=== PATIENT | female | born 1985 | race Caucasian/White ===

== ENCOUNTER 2018-04-10 10:15 | Inpatient (IN) ==
--- NOTE | 2018-04-10 10:32 | ED ---
HPI - - General Source: patient - General Chief complaint: Medical Clearance Stated complaint: well being - History of Present Illness HPI narrative: Sent from [facility] for ob evaluation for admission. ( Batool Maher) - Related Data Home Medications Medication Instructions Recorded Confirmed prenat.vits,teresa,[id number] 1 tab PO DAILY 04/10/18 04/10/18 [ Vitamin] Allergies Allergy/AdvReac Type Severity Reaction Status Date / Time No Known Allergies Allergy Verified 04/10/18 13:48 Review of Systems All other systems reviewed negative except as stated in HPI PMFSH - - Past Medical History Medical history: Reports: diabetes Questionable history of hep C, never began metformin for gest diabetes DESIGNER ARCHITECT history: Reports: No DESIGNER ARCHITECT History Expected Date of Delivery: 05/02/18 - Social History Smoking Status: Current every day smoker Physical Exam - General Limitations: no limitations - Respiratory Respiratory exam: Present: normal lung sounds bilaterally - Cardiovascular Cardiovascular exam: Present: regular rate, normal rhythm - Abdominal Exam Abdominal exam: Present: soft. Absent: tenderness - Extremities Exam Extremities exam: Present: normal inspection - Neurological Exam Neurological exam: Present: alert, oriented X3 - Psychiatric Psychiatric exam: Present: normal affect, normal mood - Skin Skin exam: Present: warm, dry, intact - Other Other exam information: FHTs reactive, cat 1, no contractions (Batool Maher) Initial Documented Vital Signs Temperature 98.0 F 04/10/18 10:32 Respiratory Rate 18 04/10/18 10:32 Last Documented Vital Signs Temperature 97.9 F 04/10/18 13:41 Pulse Rate 54 L 04/10/18 13:41 Respiratory Rate 18 04/10/18 13:41 Blood Pressure 132/73 04/10/18 13:41 MDM - OB/Uterine Contractions - Lab Data Result diagrams: 04/10/18 14:25 - MDM Narrative Medical decision making narrative: Patient with oligohydramnios. Explained need for admission and delivery at term for the safety of her . (Batool Maher)
[2018-04-10] MEDS ORDERED: Oxytocin 30 Units/500ml Premix 30 UNITS/500 ML BAG IV.SIG ONE (13:16)
[2018-04-10] MEDS ORDERED: fentaNYL Citrate Inj 100 MCG/2 ML Ampul IV.PUSH PRN (13:16)
[2018-04-10] MEDS ORDERED: Sodium Chlor 0.9% Inj 500 ML IV.SIG PRN (13:16)
[2018-04-10] MEDS ORDERED: Naloxone Inj 0.4 MG/ML Vial IV.PUSH PRN (13:16)
[2018-04-10] MEDS ORDERED: Sod Chloride 0.9% Inj 1,000 ML IV.CONT PRN (13:16)
[2018-04-10] MEDS ORDERED: Citric Acid/Sodium Citrate Liq 30 ML UDC PO SCH (13:30)
[2018-04-10 15:16] LABS: Baso # (Auto) 0.1 th/mm3 (0.0-0.2); Baso % (Auto) 0.7 % (0.0-2.0); Eos # (Auto) 0.1 th/mm3 (0.0-0.4); Eos % (Auto) 0.7 % (0.0-4.0); Hematocrit 31.8 % (35.0-46.0); Hemoglobin 10.4 gm/dL (11.6-15.3); Lymph # (Auto) 2.2 th/mm3 (1.0-4.8); Lymph % (Auto) 24.4 % (9.0-44.0); Mean Corpuscular HGB Conc 32.6 % (32.0-36.0); Mean Corpuscular Hemoglobin 25.1 pg (27.0-34.0); Mean Corpuscular Volume 76.9 fL (80.0-100.0); Mono # (Auto) 0.9 th/mm3 (0.0-0.9); Mono % (Auto) 9.8 % (0.0-8.0); Neut # (Auto) 5.7 th/mm3 (1.8-7.7); Neut % (Auto) 64.4 % (16.0-70.0); Platelet Count 305 th/mm3 (150-450); Red Blood Count 4.13 mil/mm3 (4.00-5.30); Red Cell Distribution Width 16.4 % (11.6-17.2); White Blood Count 8.9 th/mm3 (4.0-11.0)
--- NOTE | 2018-04-10 16:32 | P.HPOB ---
History of Present Illness Primary Care Physician: No Primary Care Physician Chief Complaint: oligohydramnios History of Present Illness: Pt came in last night for verification to be admitted to [facility]. NST reactive and was sent home. Pt returns today for further evaluation. Program contacted and was told she needed an ultrasound. On ultrasound her IBIS was found to be 4.2, no 2cm pockets. Weeks Gestation:: 36 (+6d) Para: 0 : 1 Last menstrual period: 07/26/2017 - Inpatient Certification I certify that the inpatient services were ordered in accordance with Medicare regulations governing the order. This includes certification that hospital inpatient services are reasonable and necessary and in the case of services not specified as inpatient-only under 42 CFR 419.22(n), that they are appropriately provided as inpatient services in accordance to with the 2-midnight benchmark under 43 CFR 412.3(e) Estimated Total Length of Stay (Days): 3 Plans for Post Hospital Care: Home Review of Systems All other systems reviewed negative except as stated in HPI [facility] - History History Provided By: Patient - Medical History Medical History: Medical History (Last Updated 04/10/18 @ 00:25 by Marshall Davalos MD) Gestational diabetes mellitus (GDM) affecting first Hepatitis C Hepatitis C antibody test positive - Tobacco History Smoking Status: Current every day smoker Tobacco Type: Cigarettes Packs Per Day: 0.5 - Substance Use History Substance History: No History of Abuse - Travel History History of Recent Travel: No Recent Travel in the [place] Within the Last 8 Weeks: No Recent Travel Out of the Country Within the Last 8 Weeks: No Medications and Allergies Active Medications: Active Medications Betamethasone Acet/Betameth SodPhos (Celestone Soluspan Inj) 12 mg IM ONCE ONE Stop: 04/10/18 16:06 Citric Acid/Sodium Citrate (Sodium Citrate/Citric Acid Liq) 30 ml PO BLOCK CUTTER HEIDI Stop: 04/14/18 13:29 Fentanyl Citrate (Fentanyl Inj) 100 mcg IV.PUSH Q1H PRN PRN Reason: PAIN SCALE 6 TO 10 Fentanyl Citrate (Fentanyl Inj) 50 mcg IV.PUSH Q1H PRN PRN Reason: Pain Scale 3 - 5 Lactated Ringer's (Lr 1000 Ml Inj) 1,000 mls @ 125 mls/hr IV.CONT .Q8H [facility] Last Admin: 04/10/18 14:24 Dose: 125 mls/hr Lactated Ringer's (Lr 1000 Ml Inj) 1,000 mls @ 3,000 mls/hr IV.SIG UNSCH PRN PRN Reason: compromise or epidural Sodium Chloride (Ns Inj) 1,000 mls @ 100 mls/hr IV.CONT .Q10H PRN PRN Reason: SEE LABEL COMMENTS Sodium Chloride (Ns Inj) 500 mls @ 1,000 mls/hr IV.SIG UNSCH PRN PRN Reason: SEE LABEL COMMENTS Lidocaine HCl (Xylocaine 1% Inj) 0.1 ml I-DERMAL PRN PRN PRN Reason: For IV start Stop: 04/13/18 13:15 Lidocaine HCl (Xylocaine 1% Inj) 10 ml INFILTRATN PRN PRN PRN Reason: For episiotomy repair Stop: 04/12/18 13:15 Mineral Oil (Muri-Lube Oil) 10 ml TOPICAL PRN PRN PRN Reason: PRN perineal massage Naloxone HCl (Narcan Inj) 0.1 mg IV.PUSH Q2M PRN PRN Reason: for opiate reversal Nicotine (Habitrol 7 Mg Patch.24 Hr) 1 patch T-DERMAL DAILY HEIDI Stop: 04/12/18 09:01 Patch Removal (Remove Old Patch) 1 each T-DERMAL DAILY HEIDI Allergies Allergy/AdvReac Type Severity Reaction Status Date / Time No Known Allergies Allergy Verified 04/10/18 13:48 Home Medications Medication Instructions Recorded Confirmed Type prenat.vits,teresa,rap-bcnx-ukuam 1 tab PO DAILY 04/10/18 04/10/18 History [ Vitamin] Exam Vital signs: Vital Signs 04/10/18 10:32 04/10/18 10:33 04/10/18 13:41 Temperature 98.0 F 97.9 F Pulse Rate 55 L 54 L Respiratory Rate 18 18 Blood Pressure 119/55 L 132/73 Intake & Output 04/09/18 04/10/18 04/10/18 18:59 06:59 18:59 Weight 78.471 kg - Constitutional no acute distress, average body habitus - Routine HEENT Exam Head: Present: normocephalic, atraumatic - Routine Respiratory Exam Absent: wheezes - Routine Cardiovascular Exam Present: RRR, S1, S2. Absent: murmur - Routine Abdominal Exam Present: soft. Absent: tenderness - Routine Extremities Exam Absent: cyanosis, clubbing, edema - Routine Skin Exam Present: intact, dry - Routine Neurological Exam Present: alert, oriented X3 Results - Labs CBC & Chem 7: 04/10/18 14:25 Labs: Laboratory Results - last 24 hr 04/10/18 04/10/18 14:25 14:25 WBC 8.9 RBC 4.13 Hgb 10.4 L Hct 31.8 L MCV 76.9 L MCH 25.1 L MCHC 32.6 RDW 16.4 Plt Count 305 MPV 10.0 Neut % (Auto) 64.4 Lymph % (Auto) 24.4 [place] % (Auto) 9.8 H Eos % (Auto) 0.7 Baso % (Auto) 0.7 Neut # (Auto) 5.7 Lymph # (Auto) 2.2 [place] # (Auto) 0.9 Eos # (Auto) 0.1 Baso # (Auto) 0.1 WBC Differential . Differential Comment Auto diff final Blood Type A Positive Blood Type Recheck Required Caprini VTE Risk Assessment Caprini VTE Risk Assessment: No/Low Risk (score <= 1) Caprini Risk Assessment Model: Point Value = 1 Point Value = 2 Point Value = 3 Point Value = 5 Age 41-60 Minor surgery BMI > 25 kg/m2 Swollen legs Varicose veins or History of unexplained or recurrent spontaneous Oral contraceptives or hormone replacement Sepsis (< 1 month) Serious lung disease, including pneumonia (< 1 month) Abnormal pulmonary function Acute myocardial infarction Congestive heart failure (< 1 month) History of inflammatory bowel disease Medical patient at bed rest Age 61-74 Arthroscopic surgery Major open surgery (> 45 min) Laparoscopic surgery (> 45 min) Malignancy Confined to bed (> 72 hours) Immobilizing plaster cast Central venous access Age >= 75 History of VTE Family history of VTE Factor V Leiden Prothrombin [id number] Lupus anticoagulant Anticardiolipin antibodies Elevated serum homocysteine Heparin-induced thrombocytopenia Other congenital or acquired thrombophilia Stroke (< 1 month) Elective arthroplasty Hip, pelvis, or leg fracture Acute spinal cord injury (< 1 month) Prophylaxis Regimen: Total Risk Factor Score Risk Level Prophylaxis Regimen 0-1 Low Early ambulation 2 Moderate Order ONE of the following: *Sequential Compression Device (SCD) *Heparin 5000 units SQ BID 3-4 Higher Order ONE of the following medications: *Heparin 5000 units SQ TID *Enoxaparin/Lovenox 40 mg SQ daily (WT < 150 kg, CrCl > 30 mL/min) *Enoxaparin/Lovenox 30 mg SQ daily (WT < 150 kg, CrCl > 10-29 mL/min) *Enoxaparin/Lovenox 30 mg SQ BID (WT < 150 kg, CrCl > 30 mL/min) AND/OR *Sequential Compression Device (SCD) 5 or more Highest Order ONE of the following medications: *Heparin 5000 units SQ TID (Preferred with Epidurals) *Enoxaparin/Lovenox 40 mg SQ daily (WT < 150 kg, CrCl > 30 mL/min) *Enoxaparin/Lovenox 30 mg SQ daily (WT < 150 kg, CrCl > 10-29 mL/min) *Enoxaparin/Lovenox 30 mg SQ BID (WT < 150 kg, CrCl > 30 mL/min) AND *Sequential Compression Device (SCD) Assessment and Plan - Diagnosis (1) Intravenous drug use during in third trimester Code(s): O99.323 - Drug use complicating , third trimester; F19.90 - Other psychoactive substance use, unspecified, uncomplicated Status: Acute (2) Oligohydramnios without rupture of membranes in third trimester Code(s): O41.03X0 - Oligohydramnios, third trimester, not applicable or unspecified Status: Acute - Plan 33 yo sent in from [facility] for ob clearance prior to acceptance in the program. Ultrasound revealed oligohydramnios and patient was admitted for delivery. care with Dr Dell Glaser, [facility] planned for delivery. complicated by gestational diabetes, anemia, hepatitis C and heroin use. No evidence of labor. Will use cervidil for cervical ripening, followed by pitocin. Will moniter glucose and will obtain case management consult. (2) Oligohydramnios without rupture of membranes in third trimester Qualifiers: Fetus number: single or unspecified fetus Qualified Code(s): O41.03X0 - Oligohydramnios, third trimester, not applicable or unspecified
[2018-04-10] MEDS ORDERED: Betamethasone Sod Phos/Acetate Inj 30 MG/5 ML Vial IM ONE (17:00)
[2018-04-10 17:51] LABS: Bacteria,Urine Rare /hpf; Bilirubin,Urine Negative (Negative); Clarity,Urine Hazy (Clear); Color,Urine Yellow (Yellw/Straw); Glucose,Urine (UA) 50 mg/dL (Negative); Leukocyte Esterase,Urine Large (Negative); Mucus,Urine Few /lpf (Occasional); Nitrite,Urine Negative (Negative); Specific Gravity,Urine 1.014 (1.002-1.035); Squamous Epithelial Cell,Urine 4 /hpf (0-5)
[2018-04-10 17:57] LABS: Amphetamine Urine With Conf Neg (Neg); Benzodiazepine Urine With Conf Neg (Neg)
[2018-04-10 19:06] LABS: Hepatitis A IgM Antibody Nonreactive (Nonreactive); Hepatitits B Surface Antigen Nonreactive (Nonreactive)
[2018-04-10] MEDS: fentaNYL Citrate Inj 100 MCG/2 ML Ampul IV.PUSH PRN (22:48)
[2018-04-11] MEDS: fentaNYL Citrate Inj 100 MCG/2 ML Ampul IV.PUSH PRN (01:25)
--- NOTE | 2018-04-11 02:45 | P.OBANTE ---
Subjective Antepartum ROS: Reports: Contractions Objective Vital Signs and I&O: Vital Signs 04/10/18 10:32 04/10/18 10:33 04/10/18 13:41 Temperature 98.0 F 97.9 F Pulse Rate 55 L 54 L Respiratory Rate 18 18 Blood Pressure 119/55 L 132/73 04/10/18 17:53 04/10/18 19:32 04/10/18 19:45 Temperature 98.0 F Pulse Rate 52 L 65 Respiratory Rate 1 L Blood Pressure 139/81 138/61 04/10/18 22:45 04/10/18 23:17 04/10/18 23:30 Temperature 98.0 F Pulse Rate 60 54 L Respiratory Rate 20 18 Blood Pressure 156/78 H 115/50 L 04/11/18 01:15 Temperature Pulse Rate 47 L Respiratory Rate 20 Blood Pressure 144/76 H Intake & Output 04/10/18 04/10/18 04/11/18 06:59 18:59 06:59 Intake Total 1000 / 1000 Balance 1000 / 1000 Weight 78.471 kg Intake: IV 1000 / 1000 LR 1000 mL Inj 1,000 ML @ 125 1000 / 1000 mls/hr IV.CONT .Q8H [facility] Rx#: [id number] Lab and Micro Results: Laboratory Results - last 24 hr 04/10/18 04/10/18 04/10/18 13:50 13:50 14:25 WBC 8.9 RBC 4.13 Hgb 10.4 L Hct 31.8 L MCV 76.9 L MCH 25.1 L MCHC 32.6 RDW 16.4 Plt Count 305 MPV 10.0 Neut % (Auto) 64.4 Lymph % (Auto) 24.4 [place] % (Auto) 9.8 H Eos % (Auto) 0.7 Baso % (Auto) 0.7 Neut # (Auto) 5.7 Lymph # (Auto) 2.2 [place] # (Auto) 0.9 Eos # (Auto) 0.1 Baso # (Auto) 0.1 WBC Differential . Differential Comment Auto diff final POC Glucose Urine Color Yellow Urine Clarity Hazy H Urine pH 7.0 Ur Specific [place] 1.014 Urine Protein Negative Urine Glucose (UA) 50 Urine Ketones Negative Urine Occult Blood Negative Urine Nitrate Negative Urine Bilirubin Negative Urine Urobilinogen 2.0 H Ur Leukocyte Esterase Large H Urine RBC 1 Urine WBC 4 Ur Squamous Epith Cells 4 Urine Bacteria Rare H Urine Mucus Few H Micro UA Comment Culture not ind Urine Culture Comments Culture not ind Urine Opiates Screen Neg Ur Barbiturates Screen Neg Ur Amphetamine Screen Neg U Benzodiazepines Scrn Neg Urine Cocaine Screen Neg U Cannabinoids Screen Neg Hepatitis A IgM Ab Hep Bs Antigen Hep B Core IgM Ab Hep C IgG Ab Group B Strep (PCR) Blood Type Blood Type Recheck 04/10/18 04/10/18 04/10/18 14:25 14:25 17:21 WBC RBC Hgb Hct MCV MCH MCHC RDW Plt Count MPV Neut % (Auto) Lymph % (Auto) [place] % (Auto) Eos % (Auto) Baso % (Auto) Neut # (Auto) Lymph # (Auto) [place] # (Auto) Eos # (Auto) Baso # (Auto) WBC Differential Differential Comment POC Glucose 72 Urine Color Urine Clarity Urine pH Ur Specific [place] Urine Protein Urine Glucose (UA) Urine Ketones Urine Occult Blood Urine Nitrate Urine Bilirubin Urine Urobilinogen Ur Leukocyte Esterase Urine RBC Urine WBC Ur Squamous Epith Cells Urine Bacteria Urine Mucus Micro UA Comment Urine Culture Comments Urine Opiates Screen Ur Barbiturates Screen Ur Amphetamine Screen U Benzodiazepines Scrn Urine Cocaine Screen U Cannabinoids Screen Hepatitis A IgM Ab Nonreactive Hep Bs Antigen Nonreactive Hep B Core IgM Ab Nonreactive Hep C IgG Ab Reactive H Group B Strep (PCR) Blood Type A Positive Blood Type Recheck Required 04/10/18 04/10/18 21:10 22:58 WBC RBC Hgb Hct MCV MCH MCHC RDW Plt Count MPV Neut % (Auto) Lymph % (Auto) [place] % (Auto) Eos % (Auto) Baso % (Auto) Neut # (Auto) Lymph # (Auto) [place] # (Auto) Eos # (Auto) Baso # (Auto) WBC Differential Differential Comment POC Glucose 151 H Urine Color Urine Clarity Urine pH Ur Specific [place] Urine Protein Urine Glucose (UA) Urine Ketones Urine Occult Blood Urine Nitrate Urine Bilirubin Urine Urobilinogen Ur Leukocyte Esterase Urine RBC Urine WBC Ur Squamous Epith Cells Urine Bacteria Urine Mucus Micro UA Comment Urine Culture Comments Urine Opiates Screen Ur Barbiturates Screen Ur Amphetamine Screen U Benzodiazepines Scrn Urine Cocaine Screen U Cannabinoids Screen Hepatitis A IgM Ab Hep Bs Antigen Hep B Core IgM Ab Hep C IgG Ab Group B Strep (PCR) Positive Blood Type Blood Type Recheck Physical Exam: GENERAL: Well-nourished, well-developed patient. ABDOMEN/GI: Abdomen soft, non-tender. GENITOURINARY: External Genitalia: Cervix: posterior Dilatation: 3-4 Effacement: 80 Station: 0 Presentation: ceph Membranes: I Uterine Contractions: q 3, strong FHT's: Category: 1 Baseline: 130 Reactive: + Variability: mod Decels: none EXTREMITIES: No cyanosis or edema, non-tender, without signs of DVT. Assessment and Plan - Diagnosis (1) Intravenous drug use during in third trimester Code(s): O99.323 - Drug use complicating , third trimester; F19.90 - Other psychoactive substance use, unspecified, uncomplicated Status: Acute (2) Oligohydramnios without rupture of membranes in third trimester Code(s): O41.03X0 - Oligohydramnios, third trimester, not applicable or unspecified Status: Acute - Plan Patient very uncomfortable with contractions. Now dilated, cervidil removed. Will obtain labor epidural Will add pitocin if needed for labor GBS never received from records, rapid test done, + results, patient placed on Penicillin IV (2) Oligohydramnios without rupture of membranes in third trimester Qualifiers: Fetus number: single or unspecified fetus Qualified Code(s): O41.03X0 - Oligohydramnios, third trimester, not applicable or unspecified
[2018-04-11] MEDS ORDERED: fentaNYL 2MCG-Bupiv 0.125% Epi 150 ML EPIDURAL ONE (02:46)
[2018-04-11] MEDS ORDERED: fentaNYL Citrate Inj 100 MCG/2 ML Ampul EPIDURAL ONE (03:57)
[2018-04-11] MEDS ORDERED: fentaNYL 2MCG-Bupiv 0.125% Epi 150 ML EPIDURAL PRN (03:57)
[2018-04-11] MEDS: Penicillin G Sodium Inj 2,500,000 UNITS in Sodium Chlor 0.9% Inj 100 ML IV.SIG SCH ×3 (07:29→16:15)
[2018-04-11] MEDS ORDERED: Oxytocin 30 Units/500ml Premix 30 UNITS/500 ML BAG IV.SIG PRN (08:27)
[2018-04-11] MEDS ORDERED: Bupivacaine PF 0.25% Inj 10 ML Vial ONE ×3 (10:20→18:03)
--- NOTE | 2018-04-11 14:22 | P.OBLABOR ---
Subjective Interval history: Patient seen and examined. No acute complaints at this time. Resting comfortably in bed. Objective Vital Signs: Vital Signs - 8 hr 04/11/18 06:40 04/11/18 06:56 04/11/18 07:10 Temperature Pulse Rate 50 L 50 L 54 L Respiratory Rate 18 Blood Pressure 128/59 L 129/64 132/67 04/11/18 07:22 04/11/18 07:25 04/11/18 07:35 Temperature 98.3 F Pulse Rate 53 L 68 55 L Respiratory Rate 16 Blood Pressure 123/69 04/11/18 07:50 04/11/18 07:55 04/11/18 08:00 Temperature Pulse Rate 63 56 L 55 L Respiratory Rate Blood Pressure 127/69 04/11/18 08:10 04/11/18 08:29 04/11/18 08:30 Temperature Pulse Rate 50 L 52 L Respiratory Rate 18 Blood Pressure 131/70 04/11/18 08:40 04/11/18 09:00 04/11/18 09:10 Temperature 98.3 F Pulse Rate 54 L 52 L 58 L Respiratory Rate 18 Blood Pressure 134/58 L 04/11/18 09:15 04/11/18 09:20 04/11/18 09:25 Temperature Pulse Rate 62 52 L 51 L Respiratory Rate Blood Pressure 04/11/18 09:35 04/11/18 09:55 04/11/18 10:00 Temperature Pulse Rate 52 L 52 L 51 L Respiratory Rate Blood Pressure 127/69 04/11/18 10:04 04/11/18 10:05 04/11/18 10:10 Temperature Pulse Rate 50 L 50 L 49 L Respiratory Rate Blood Pressure 123/86 04/11/18 10:25 04/11/18 10:30 04/11/18 10:35 Temperature Pulse Rate 48 L 50 L 52 L Respiratory Rate 18 Blood Pressure 141/72 H 04/11/18 11:06 04/11/18 11:42 04/11/18 12:14 Temperature 98.1 F Pulse Rate 48 L 46 L 48 L Respiratory Rate 18 18 Blood Pressure 146/70 H 132/73 128/68 04/11/18 13:09 04/11/18 13:45 Temperature 99.0 F Pulse Rate 46 L 48 L Respiratory Rate 18 20 Blood Pressure 122/71 124/58 L Objective: Pelvic Exam: Cervix: Posterior Dilatation: 6 Effacement: 80 Station: -1 Membranes: intact Uterine Contractions: occasional FHT's: Category: 1 Baseline: 140 Reactive: yes Variability: moderate Decels: none Assessment and Plan - Plan Patient currently being induced with oligohydramnios. -Continue induction at this time, continues to progress -Expectant management -FHT category 1, reassuring -Monitor FHT D/W dr. Chapa
[2018-04-11] MEDS ORDERED: Measles/Mumps/Rubella Vaccine Inj 0.5 ML Vial SQ ONE (16:00)
[2018-04-11] MEDS ORDERED: Diphtheria/Tetanus/Pertussis Vaccine Inj 0.5 ML Syringe IM ONE (16:00)
[2018-04-11] MEDS ORDERED: Lidocaine 1% Inj 50 ML Vial ONE (21:14)
[2018-04-11] MEDS ORDERED: Acetaminophen 325 MG Tablet PO PRN (21:32)
[2018-04-11] MEDS ORDERED: Bisacodyl 10 MG Supp RECTAL PRN (21:32)
[2018-04-11] MEDS ORDERED: Benzocaine 20% Top Spray 60 ML Can TOPICAL PRN (21:32)
[2018-04-11] MEDS ORDERED: Witch Hazel 50%/Glyderin 12.5% 40 Pad Jar RECTAL PRN (21:32)
[2018-04-11] MEDS ORDERED: Naloxone Inj 0.4 MG/ML Vial IV.PUSH PRN (21:32)
[2018-04-11] MEDS ORDERED: Oxytocin 30 Units/500ml Premix 30 UNITS/500 ML BAG IV.CONT SCH (21:45)
--- NOTE | 2018-04-11 21:47 | P.OBDELI ---
Weeks Gestation: 36 (+6d) Patient Started Active Labor: No Active Labor Start Date: 04/11/18 Active Labor Start Time: 15:00 Medical Induction of Labor: Yes Medical Induction Start Date: 04/10/18 Artificial Rupture of Membrane: Yes Artificial ROM Date: 04/11/18 Artificial ROM Time: 15:00 Anesthesia: Epidural Episiotomy: none Vaginal Delivery: Normal, Spontaneous Presentation: Compound Nuchal Cord: x1 Delayed Cord Clamping (45 sec): Yes Placenta: Spontaneous delivery, 3 vessel cord Laceration: Perineal, 2 deg Repair: Chromic interrupted, Vicryl interrupted Estimated blood loss (mL): 150 Infant: Female ( 9/9)
[2018-04-12] MEDS: Penicillin G Sodium Inj 2,500,000 UNITS in Sodium Chlor 0.9% Inj 100 ML IV.SIG SCH (01:06)
[2018-04-12] MEDS: Ibuprofen 400 MG Tablet PO PRN ×3 (04:32→21:15)
[2018-04-12] MEDS ORDERED: Methylergonovine Inj 0.2 MG/ML Ampul IM SCH (06:00)
[2018-04-12] MEDS ORDERED: Labetalol HCl Inj 100 MG/20 ML Vial IV.PUSH ONE (07:45)
[2018-04-12] MEDS: Prenatal Vit/Ca/Iron/Folic Acid Tablet PO SCH (08:01)
[2018-04-12] MEDS: Ferrous Sulfate 325 MG Tablet PO SCH (08:01)
[2018-04-12] MEDS: Senna/Docusate Sodium 8.6/50 MG Tablet PO SCH ×2 (08:01→21:15)
[2018-04-12] MEDS ORDERED: Non-Formulary Drug (Prenat.Vits,Cal,Min-Iron-Folic [Prenatal Vitamin] 1 TAB) PO SCH (09:00)
[2018-04-12] MEDS ORDERED: NIFEdipine 10 MG Capsule PO ONE (09:15)
--- NOTE | 2018-04-12 09:15 | P.PNOB ---
Subjective Post day: 1 Interval history: Patient was treated for PPH overnight. Currently she notes no ABEBE, no vision changes, no SOB, no RUQ pain. Objective Vital Signs/I&O: Vital Signs 04/11/18 09:10 04/11/18 09:15 04/11/18 09:20 Temperature Pulse Rate 58 L 62 52 L Respiratory Rate Blood Pressure 04/11/18 09:25 04/11/18 09:35 04/11/18 09:55 Temperature Pulse Rate 51 L 52 L 52 L Respiratory Rate Blood Pressure 127/69 04/11/18 10:00 04/11/18 10:04 04/11/18 10:05 Temperature Pulse Rate 51 L 50 L 50 L Respiratory Rate Blood Pressure 123/86 04/11/18 10:10 04/11/18 10:25 04/11/18 10:30 Temperature Pulse Rate 49 L 48 L 50 L Respiratory Rate 18 Blood Pressure 141/72 H 04/11/18 10:35 04/11/18 11:06 04/11/18 11:42 Temperature 98.1 F Pulse Rate 52 L 48 L 46 L Respiratory Rate 18 Blood Pressure 146/70 H 132/73 04/11/18 12:14 04/11/18 13:09 04/11/18 13:45 Temperature 99.0 F Pulse Rate 48 L 46 L 48 L Respiratory Rate 18 18 20 Blood Pressure 128/68 122/71 124/58 L 04/11/18 15:02 04/11/18 15:03 04/11/18 15:34 Temperature 98.3 F Pulse Rate 48 L Respiratory Rate 18 Blood Pressure 122/66 04/11/18 16:17 04/11/18 17:05 04/11/18 17:28 Temperature 98.1 F Pulse Rate 43 L 46 L Respiratory Rate 18 18 18 Blood Pressure 135/78 135/81 04/11/18 17:29 04/11/18 18:01 04/11/18 18:07 Temperature Pulse Rate 45 L 48 L 47 L Respiratory Rate Blood Pressure 140/76 128/70 130/74 04/11/18 18:10 04/11/18 18:26 04/11/18 18:30 Temperature Pulse Rate 47 L 62 Respiratory Rate 18 Blood Pressure 144/75 H 142/77 H 04/11/18 19:01 04/11/18 19:31 04/11/18 19:38 Temperature 97.4 F L Pulse Rate 48 L 52 L Respiratory Rate 8 L Blood Pressure 130/68 129/75 04/11/18 20:00 04/11/18 21:01 04/11/18 21:36 Temperature Pulse Rate 56 L 51 L 59 L Respiratory Rate 18 Blood Pressure 139/78 150/81 H 141/76 H 04/11/18 22:30 04/11/18 22:31 04/12/18 00:01 Temperature Pulse Rate 50 L 48 L Respiratory Rate 20 Blood Pressure 141/88 H 137/75 04/12/18 00:16 04/12/18 00:30 04/12/18 01:00 Temperature 98.1 F Pulse Rate 62 56 L 56 L Respiratory Rate 19 Blood Pressure 127/55 L 131/58 L 144/77 H 04/12/18 08:00 04/12/18 08:30 Temperature 98.1 F Pulse Rate 42 L 42 L Respiratory Rate 20 Blood Pressure 195/99 H 168/90 H Intake & Output 04/11/18 04/12/18 04/12/18 18:59 06:59 18:59 Intake Total 1300 / 1300 Balance 1300 / 1300 Intake: IV 1300 / 1300 LR 1000 mL Inj 1,000 ML @ 125 1000 / 1000 mls/hr IV.CONT .Q8H [facility] Rx#: [id number] Penicillin G Sodium Inj 2,500, 300 / 300 000 UNITS In NS Inj 100 ML @ 200 mls/hr IV.SIG Q4H [facility] Rx#: [id number] Result Diagrams: 04/10/18 14:25 Objective Remarks: GENERAL: Well-nourished, well-developed patient. CARDIOVASCULAR: Regular rate and rhythm without murmurs, gallops, or rubs. RESPIRATORY: Breath sounds equal bilaterally. No accessory muscle use. ABDOMEN/GI: Abdomen soft, non-tender. Fundus: Firm, non-tender at umbilicus. GENITOURINARY: Light to moderate bleeding. EXTREMITIES: No cyanosis or edema, non-tender, without signs of DVT. Medications and IVs: Active Medications Acetaminophen (Tylenol) 650 mg PO Q4H PRN PRN Reason: PAIN SCALE 1 TO 2 Al Hydroxide/Mg Hydroxide (Milk Of Magnesia Liq) 30 ml PO Q12H PRN PRN Reason: Mild Constipation Benzocaine (Americaine 20% Top [place]) 1 spray TOPICAL Q4H PRN PRN Reason: For Perineum Discomfort Last Admin: 04/12/18 01:31 Dose: 1 spray Bisacodyl (Dulcolax Supp) 10 mg RECTAL DAILY PRN PRN Reason: SEVERE CONSITIPATION Citric Acid/Sodium Citrate (Sodium Citrate/Citric Acid Liq) 30 ml PO [employer] [facility] Stop: 04/14/18 13:29 Fentanyl Citrate (Fentanyl Inj) 100 mcg IV.PUSH Q1H PRN PRN Reason: PAIN SCALE 6 TO 10 Last Admin: 04/11/18 01:25 Dose: 100 mcg Fentanyl Citrate (Fentanyl Inj) 50 mcg IV.PUSH Q1H PRN PRN Reason: Pain Scale 3 - 5 Ferrous Sulfate (Ferosul) 325 mg PO DAILY [facility] Last Admin: 04/12/18 08:01 Dose: 325 mg Lactated Ringer's (Lr 1000 Ml Inj) 1,000 mls @ 125 mls/hr IV.CONT .Q8H [facility] Last Admin: 04/11/18 18:50 Dose: Not Given Lactated Ringer's (Lr 1000 Ml Inj) 1,000 mls @ 3,000 mls/hr IV.SIG UNSCH PRN PRN Reason: compromise or epidural Sodium Chloride (Ns Inj) 1,000 mls @ 100 mls/hr IV.CONT .Q10H PRN PRN Reason: SEE LABEL COMMENTS Sodium Chloride (Ns Inj) 500 mls @ 1,000 mls/hr IV.SIG UNSCH PRN PRN Reason: SEE LABEL COMMENTS Penicillin G Sodium 2,500,000 (units/ Sodium Chloride) 100 mls @ 200 mls/hr IV.SIG Q4H [facility] Last Admin: 04/12/18 01:06 Dose: 200 mls/hr Fentanyl/Bupivacaine/Sodium Chlor (Fentanyl 2 Mcg-Bupiv 0.125% Epi) 150 mls @ 12 mls/hr EPIDURAL PRN PRN PRN Reason: for Labor Pain Oxytocin (Pitocin 30 Units/Ns 500 Ml Premix) 30 units in 500 mls @ 2 mls/hr IV.SIG TITRATE PRN; Protocol PRN Reason: For induction of labor Last Admin: 04/11/18 08:59 Dose: 2 milliunit/min, 2 mls/hr Ibuprofen (Motrin) 800 mg PO Q8H PRN PRN Reason: For cramping Last Admin: 04/12/18 04:32 Dose: 800 mg Lactulose (Lactulose Liq) 30 ml PO DAILY PRN PRN Reason: SEVERE CONSITIPATION Lidocaine HCl (Xylocaine 1% Inj) 0.1 ml I-DERMAL PRN PRN PRN Reason: For IV start Stop: 04/13/18 13:15 Lidocaine HCl (Xylocaine 1% Inj) 10 ml INFILTRATN PRN PRN PRN Reason: For episiotomy repair Stop: 04/12/18 13:15 Mineral Oil (Muri-Lube Oil) 10 ml TOPICAL PRN PRN PRN Reason: PRN perineal massage Naloxone HCl (Narcan Inj) 0.1 mg IV.PUSH Q2M PRN PRN Reason: for opiate reversal Ondansetron HCl (Zofran Odt) 4 mg PO Q6H PRN PRN Reason: NAUSEA OR VOMITING Oxycodone/Acetaminophen (Percocet 5/325 Mg) 1 tab PO Q4H PRN PRN Reason: PAIN SCALE 3 TO 5 Patch Removal (Remove Old Patch) 1 each T-DERMAL DAILY [facility] Vit/Calcium/Iron/Folic Ac (Stuartnatal Plus 3) 1 tab PO DAILY [facility] Last Admin: 04/12/18 08:01 Dose: 1 tab Senna/Docusate Sodium (Elysia-Colace) 1 tab PO BID [facility] Last Admin: 04/12/18 08:01 Dose: 1 tab Sennosides (Senokot) 17.2 mg PO Q12H PRN PRN Reason: Moderate Constipation Sodium Chloride (Ns Flush) 2 ml IV.FLUSH BID [facility] Sodium Chloride (Ns Flush) 2 ml IV.FLUSH PRN PRN PRN Reason: FLUSH AFTER USING IV ACCESS Witch Tessa/Glycerin (Tucks Pads) 1 applicatio RECTAL QID PRN PRN Reason: HEMORRHOIDS Last Admin: 04/12/18 01:31 Dose: 1 applicatio Zolpidem Tartrate (Ambien) 5 mg PO HS PRN PRN Reason: SLEEP Assessment and Plan - Diagnosis (1) Intravenous drug use during in third trimester Code(s): O99.323 - Drug use complicating , third trimester; F19.90 - Other psychoactive substance use, unspecified, uncomplicated Status: Acute (2) Oligohydramnios without rupture of membranes in third trimester Code(s): O41.03X0 - Oligohydramnios, third trimester, not applicable or unspecified Status: Acute - Plan PPD#1 s/p Patient was treated with methergine around 6AM fro PPH. Plan to obtain CBC to ensure stable hgb level HTN - patient has received IV labetalol 20mg for BP up to 195/99. Recheck is now 168/90. She requires further antihypertensive therapy but she is currently bradycardic in the 40's. We are unable to push IV hydralazine on the floor therefore I will give fast acting PO procardia now. She exhibits no symptoms of PreE, plan to obtain CMP to rule out HELLP. This exacerbation may be caused by the methergine, but if BP contineu to require meds I will start magnesium sulfate for seizure prophylaxis.
[2018-04-12 10:01] LABS: Baso # (Auto) 0.1 th/mm3 (0.0-0.2); Baso % (Auto) 0.9 % (0.0-2.0); Eos # (Auto) 0.1 th/mm3 (0.0-0.4); Eos % (Auto) 0.5 % (0.0-4.0); Hematocrit 29.9 % (35.0-46.0); Lymph # (Auto) 2.3 th/mm3 (1.0-4.8); Lymph % (Auto) 19.8 % (9.0-44.0); Mean Corpuscular HGB Conc 33.3 % (32.0-36.0); Mean Corpuscular Hemoglobin 25.4 pg (27.0-34.0); Mean Corpuscular Volume 76.1 fL (80.0-100.0); Mean Platelet Volume 9.6 fL (7.0-11.0); Mono # (Auto) 0.9 th/mm3 (0.0-0.9); Mono % (Auto) 7.8 % (0.0-8.0); Neut # (Auto) 8.4 th/mm3 (1.8-7.7); Platelet Count 251 th/mm3 (150-450); Red Blood Count 3.93 mil/mm3 (4.00-5.30); Red Cell Distribution Width 16.3 % (11.6-17.2); White Blood Count 11.8 th/mm3 (4.0-11.0)
[2018-04-12 10:19] LABS: Albumin 2.2 g/dL (3.4-5.0); Anion Gap 14 meq/L (5-15); Aspartate Aminotransferase 41 U/L (15-37); Blood Urea Nitrogen 7 mg/dL (7-18); Calcium 8.8 mg/dL (8.5-10.1); Carbon Dioxide 18.5 meq/L (21.0-32.0); Chloride 107 meq/L (98-107); Glomerular Filtration Rate Greater Than 89 mL/min (>89); Glucose,Random 119 mg/dL (74-106); Potassium 3.7 meq/L (3.5-5.1); Sodium 139 meq/L (136-145)
[2018-04-12 10:20] LABS: Alanine Aminotransferase 33 U/L (10-53)
[2018-04-12 10:22] LABS: Alkaline Phosphatase 131 U/L (45-117); Total Protein 6.6 g/dL (6.4-8.2)
[2018-04-12 16:24] LABS: Protein/Creatinine Ratio,Urine 0.59 (0.00-0.14)
[2018-04-12] MEDS: Zolpidem Tartrate 5 MG Tablet PO PRN (21:21)
[2018-04-13] MEDS ORDERED: Mag Sulf/Water 4 gm/100 ml 100 ML IV.SIG ONE (01:08)
[2018-04-13] MEDS: hydrALAZINE 25 MG Tablet PO SCH ×2 (01:41→09:00)
[2018-04-13] MEDS ORDERED: Mag Sulf/Water 40 gm/1000 ml 40 GM/1,000 ML BAG IV.CONT SCH (02:00)
[2018-04-13] MEDS: Ibuprofen 400 MG Tablet PO PRN ×3 (07:29→22:38)
[2018-04-13] MEDS: Prenatal Vit/Ca/Iron/Folic Acid Tablet PO SCH (09:01)
[2018-04-13] MEDS: Ferrous Sulfate 325 MG Tablet PO SCH (09:02)
[2018-04-13] MEDS: Senna/Docusate Sodium 8.6/50 MG Tablet PO SCH ×2 (09:02→20:30)
[2018-04-13] MEDS: LORazepam 0.5 MG Tablet PO SCH ×2 (09:03→17:14)
--- NOTE | 2018-04-13 09:23 | P.PNOB ---
Subjective Interval history: Patient is a 33-year-old G 1 p 0 delivered at 37 weeks and 6 days. Patient is day 2 after spontaneous vaginal delivery. Overnight patient had an elevated blood of 167/94. Patient was in continues to be asymptomatic, and denies any headaches, dizziness, or changes in vision. Patient's pain is well- controlled. Patient reports eating and drinking without nausea or vomiting. She reports minimal vaginal bleeding and is ambulating well. Patient is urinating but has not yet had a BM. Patient endorses chills which she said she attributes to her withdrawal from opiates. She says that her current feelings remind her exactly of her previous withdrawals. Patient did show interest in rehabilitation as well as getting clean. She asked for some resources that would assist her in that and her nurse gave her name of a local physician. Patient denies any chest pain, shortness of breath, nausea, vomiting, fever, calf pain, or new lower extremity swelling. Objective Vital Signs/I&O: Vital Signs 04/12/18 10:25 04/12/18 12:40 04/12/18 16:00 Temperature Pulse Rate 60 62 66 Respiratory Rate Blood Pressure 136/81 140/88 146/82 H 04/12/18 20:00 04/12/18 22:00 04/13/18 00:55 Temperature 98.8 F Pulse Rate 58 L 96 H 46 L Respiratory Rate 20 19 Blood Pressure 154/79 H 142/90 H 162/82 H 04/13/18 01:56 04/13/18 02:06 04/13/18 02:12 Temperature Pulse Rate 42 L 106 H 49 L Respiratory Rate 18 Blood Pressure 168/75 H 146/90 H 151/74 H 04/13/18 02:13 04/13/18 02:15 04/13/18 02:25 Temperature 97.6 F Pulse Rate 46 L 50 L Respiratory Rate Blood Pressure 143/73 H 146/70 H 04/13/18 02:30 04/13/18 02:40 04/13/18 03:15 Temperature Pulse Rate 60 61 65 Respiratory Rate 18 18 Blood Pressure 139/75 137/71 135/79 04/13/18 03:20 04/13/18 03:25 04/13/18 04:15 Temperature Pulse Rate 62 59 L 60 Respiratory Rate 20 Blood Pressure 133/76 04/13/18 05:10 04/13/18 05:15 04/13/18 06:25 Temperature Pulse Rate 60 52 L Respiratory Rate 18 16 Blood Pressure 135/74 167/94 H 04/13/18 07:10 Temperature Pulse Rate 64 Respiratory Rate Blood Pressure 134/78 Result Diagrams: 04/12/18 09:51 04/12/18 09:51 Objective Remarks: GENERAL: Well-nourished, well-developed patient. Patient looks well and in no acute distress. CARDIOVASCULAR: Regular rate and rhythm without murmurs, gallops, or rubs. RESPIRATORY: Breath sounds equal bilaterally. No accessory muscle use. ABDOMEN/GI: Abdomen soft, non-tender. Fundus: Firm, non-tender at umbilicus. GENITOURINARY: Light to moderate bleeding. EXTREMITIES: No cyanosis or edema, non-tender, without signs of DVT. Medications and IVs: Active Medications Acetaminophen (Tylenol) 650 mg PO Q4H PRN PRN Reason: PAIN SCALE 1 TO 2 Last Admin: 04/12/18 21:15 Dose: 650 mg Al Hydroxide/Mg Hydroxide (Milk Of Magnesia Liq) 30 ml PO Q12H PRN PRN Reason: Mild Constipation Benzocaine (Americaine 20% Top [place]) 1 spray TOPICAL Q4H PRN PRN Reason: For Perineum Discomfort Last Admin: 04/12/18 01:31 Dose: 1 spray Bisacodyl (Dulcolax Supp) 10 mg RECTAL DAILY PRN PRN Reason: SEVERE CONSITIPATION Calcium Gluconate (Calcium Gluconate Inj) 1 gm IV.PUSH PRN PRN PRN Reason: Magnesium toxicity Citric Acid/Sodium Citrate (Sodium Citrate/Citric Acid Liq) 30 ml PO [employer] [facility] Stop: 04/14/18 13:29 Fentanyl Citrate (Fentanyl Inj) 100 mcg IV.PUSH Q1H PRN PRN Reason: PAIN SCALE 6 TO 10 Last Admin: 04/11/18 01:25 Dose: 100 mcg Fentanyl Citrate (Fentanyl Inj) 50 mcg IV.PUSH Q1H PRN PRN Reason: Pain Scale 3 - 5 Ferrous Sulfate (Ferosul) 325 mg PO DAILY [facility] Last Admin: 04/13/18 09:02 Dose: 325 mg Hydralazine HCl (Apresoline) 25 mg PO BID [facility] Last Admin: 04/13/18 01:41 Dose: 25 mg Lactated Ringer's (Lr 1000 Ml Inj) 1,000 mls @ 125 mls/hr IV.CONT .Q8H [facility] Last Admin: 04/11/18 18:50 Dose: Not Given Lactated Ringer's (Lr 1000 Ml Inj) 1,000 mls @ 3,000 mls/hr IV.SIG UNSCH PRN PRN Reason: compromise or epidural Sodium Chloride (Ns Inj) 1,000 mls @ 100 mls/hr IV.CONT .Q10H PRN PRN Reason: SEE LABEL COMMENTS Sodium Chloride (Ns Inj) 500 mls @ 1,000 mls/hr IV.SIG UNSCH PRN PRN Reason: SEE LABEL COMMENTS Fentanyl/Bupivacaine/Sodium Chlor (Fentanyl 2 Mcg-Bupiv 0.125% Epi) 150 mls @ 12 mls/hr EPIDURAL PRN PRN PRN Reason: for Labor Pain Oxytocin (Pitocin 30 Units/Ns 500 Ml Premix) 30 units in 500 mls @ 2 mls/hr IV.SIG TITRATE PRN; Protocol PRN Reason: For induction of labor Last Admin: 04/11/18 08:59 Dose: 2 milliunit/min, 2 mls/hr Lactated Ringer's (Lr 1000 Ml Inj) 1,000 mls @ 75 mls/hr IV.CONT .[id number] [facility] Last Admin: 04/13/18 02:19 Dose: 75 mls/hr Magnesium Sulfate (Magnesium Sulfate/Water 40 Gm/1000 Ml Premix) 40 gm in 1, 000 mls @ 50 mls/hr IV.CONT Q24H [facility] Last Admin: 04/13/18 02:23 Dose: 2 gm/hr, 50 mls/hr Ibuprofen (Motrin) 800 mg PO Q8H PRN PRN Reason: For cramping Last Admin: 04/13/18 07:29 Dose: 800 mg Lactulose (Lactulose Liq) 30 ml PO DAILY PRN PRN Reason: SEVERE CONSITIPATION Lidocaine HCl (Xylocaine 1% Inj) 0.1 ml I-DERMAL PRN PRN PRN Reason: For IV start Stop: 04/13/18 13:15 Lorazepam (Ativan) 0.5 mg PO Q8H [facility] Last Admin: 04/13/18 09:03 Dose: 0.5 mg Mineral Oil (Muri-Lube Oil) 10 ml TOPICAL PRN PRN PRN Reason: PRN perineal massage Naloxone HCl (Narcan Inj) 0.1 mg IV.PUSH Q2M PRN PRN Reason: for opiate reversal Nifedipine (Procardia Xl) 30 mg PO DAILY [facility] Last Admin: 04/13/18 09:02 Dose: 30 mg Ondansetron HCl (Zofran Odt) 4 mg PO Q6H PRN PRN Reason: NAUSEA OR VOMITING Oxycodone/Acetaminophen (Percocet 5/325 Mg) 1 tab PO Q4H PRN PRN Reason: PAIN SCALE 3 TO 5 Patch Removal (Remove Old Patch) 1 each T-DERMAL DAILY [facility] Vit/Calcium/Iron/Folic Ac (Stuartnatal Plus 3) 1 tab PO DAILY [facility] Last Admin: 04/13/18 09:01 Dose: 1 tab Senna/Docusate Sodium (Elysia-Colace) 1 tab PO BID [facility] Last Admin: 04/13/18 09:02 Dose: 1 tab Sennosides (Senokot) 17.2 mg PO Q12H PRN PRN Reason: Moderate Constipation Sodium Chloride (Ns Flush) 2 ml IV.FLUSH BID [facility] Last Admin: 04/12/18 21:21 Dose: 2 ml Sodium Chloride (Ns Flush) 2 ml IV.FLUSH PRN PRN PRN Reason: FLUSH AFTER USING IV ACCESS Sodium Chloride (Ns Flush) 2 ml IV.FLUSH BID [facility] Sodium Chloride (Ns Flush) 2 ml IV.FLUSH PRN PRN PRN Reason: FLUSH AFTER USING IV ACCESS Witch Tessa/Glycerin (Tucks Pads) 1 applicatio RECTAL QID PRN PRN Reason: HEMORRHOIDS Last Admin: 04/12/18 01:31 Dose: 1 applicatio Zolpidem Tartrate (Ambien) 5 mg PO HS PRN PRN Reason: SLEEP Last Admin: 04/12/18 21:21 Dose: 5 mg Assessment and Plan - Plan Patient is a 33-year-old G 1 p 0 delivered at 37 weeks and 6 days. Patient is day 2 after spontaneous vaginal delivery. Patient had elevated blood pressure overnight at 167/94. Urinalysis showed a urine protein of 20.5 as well as a protein creatinine ratio of 0.59. Her AST is 41 in the setting of hepatitis C. Patient currently on hydralazine 25 mg twice daily, IV magnesium sulfate, and nifedipine 30 mg daily. Hypertension: -Continue IV magnesium 40 mg -Continue hydralazine 25 mg twice daily -Continue nifedipine 30 mg daily -Monitor for effects of hypertension such as dizziness, headaches and changes in vision -Continue to monitor vitals -Continue to monitor LFTs, platelets, and urine protein day #2 after spontaneous vaginal delivery at term: -AF VSS -Continue routine care -Motrin and Percocet when necessary for pain -Encourage OOB -Pelvic rest for 6 weeks will need follow-up appointment at that time. -Anticipate discharge tomorrow
[2018-04-13] MEDS: Zolpidem Tartrate 5 MG Tablet PO PRN (22:36)
[2018-04-14] MEDS: LORazepam 0.5 MG Tablet PO SCH ×2 (00:22→07:58)
[2018-04-14] MEDS: Ibuprofen 400 MG Tablet PO PRN (07:57)
--- NOTE | 2018-04-14 08:48 | P.PNOB ---
Subjective Interval history: Patient is a 33-year-old G 1 p 0 delivered at 37 weeks and 6 days on day 3 after spontaneous vaginal delivery. Patient had no acute events overnight and was normotensive throughout the night. Patient denies any headaches, dizziness, or changes in vision. Patient's pain is well-controlled. Patient reports eating and drinking without nausea or vomiting. She reports minimal vaginal bleeding and is ambulating well. Patient also reports that her withdrawal symptoms from yesterday are minimal to none and feels much better. Patient denies any chest pain, shortness of breath, nausea, vomiting, fever, calf pain, or new lower extremity swelling. Of note: Patient desires Depo-Provera as contraception. Objective Vital Signs/I&O: Vital Signs 04/13/18 09:55 04/13/18 10:15 04/13/18 10:55 Temperature Pulse Rate 80 76 79 Respiratory Rate 16 Blood Pressure 134/96 H 04/13/18 11:25 04/13/18 11:45 04/13/18 11:49 Temperature 98.1 F Pulse Rate 80 78 Respiratory Rate 18 Blood Pressure 123/103 H 04/13/18 11:50 04/13/18 11:55 04/13/18 12:00 Temperature Pulse Rate 74 75 72 Respiratory Rate Blood Pressure 133/81 04/13/18 12:45 04/13/18 12:50 04/13/18 12:55 Temperature Pulse Rate 74 81 90 Respiratory Rate 18 Blood Pressure 135/78 04/13/18 13:55 04/13/18 18:09 04/13/18 18:10 Temperature Pulse Rate 82 82 Respiratory Rate 18 Blood Pressure 122/61 131/78 04/13/18 18:13 04/13/18 19:26 04/13/18 19:27 Temperature 98.6 F 98.6 F Pulse Rate 86 Respiratory Rate 14 Blood Pressure 132/76 04/14/18 00:24 04/14/18 05:00 Temperature 97.6 F Pulse Rate 66 64 Respiratory Rate 14 14 Blood Pressure 114/67 128/74 Intake & Output 04/13/18 04/14/18 04/14/18 18:59 06:59 18:59 Intake Total 800 / 800 Balance 800 / 800 Intake: IV 800 / 800 LR 1000 mL Inj 1,000 ML @ 75 800 / 800 mls/hr IV.CONT .[id number] Rx# :[id number] Result Diagrams: 04/12/18 09:51 04/12/18 09:51 Objective Remarks: GENERAL: Well-nourished, well-developed patient. CARDIOVASCULAR: Regular rate and rhythm without murmurs, gallops, or rubs. RESPIRATORY: Breath sounds equal bilaterally. No accessory muscle use. ABDOMEN/GI: Abdomen soft, non-tender. Fundus: Firm, non-tender at umbilicus. INTEGUMENTARY: Patient has an irregularly shaped non-pruritic, nonpainful erythematous rash with multiple pinpoint pustules sparing approximately 20 cm on buttocks bilaterally. This rash includes the anus, the perineum, and ends at the posterior opening of the labia. GENITOURINARY: Light to moderate bleeding. EXTREMITIES: No cyanosis or edema, non-tender, without signs of DVT. Medications and IVs: Active Medications Acetaminophen (Tylenol) 650 mg PO Q4H PRN PRN Reason: PAIN SCALE 1 TO 2 Last Admin: 04/12/18 21:15 Dose: 650 mg Al Hydroxide/Mg Hydroxide (Milk Of Magnesia Liq) 30 ml PO Q12H PRN PRN Reason: Mild Constipation Benzocaine (Americaine 20% Top [place]) 1 spray TOPICAL Q4H PRN PRN Reason: For Perineum Discomfort Last Admin: 04/12/18 01:31 Dose: 1 spray Bisacodyl (Dulcolax Supp) 10 mg RECTAL DAILY PRN PRN Reason: SEVERE CONSITIPATION Calcium Gluconate (Calcium Gluconate Inj) 1 gm IV.PUSH PRN PRN PRN Reason: Magnesium toxicity Ferrous Sulfate (Ferosul) 325 mg PO DAILY [facility] Last Admin: 04/13/18 09:02 Dose: 325 mg Ibuprofen (Motrin) 800 mg PO Q8H PRN PRN Reason: For cramping Last Admin: 04/14/18 07:57 Dose: 800 mg Lactulose (Lactulose Liq) 30 ml PO DAILY PRN PRN Reason: SEVERE CONSITIPATION Lorazepam (Ativan) 0.5 mg PO Q8H [facility] Last Admin: 04/14/18 07:58 Dose: 0.5 mg Naloxone HCl (Narcan Inj) 0.1 mg IV.PUSH Q2M PRN PRN Reason: for opiate reversal Nicotine (Habitrol 7 Mg Patch.24 Hr) 1 patch T-DERMAL DAILY [facility] Last Admin: 04/13/18 12:49 Dose: 1 patch Nifedipine (Procardia Xl) 30 mg PO DAILY [facility] Last Admin: 04/13/18 09:02 Dose: 30 mg Ondansetron HCl (Zofran Odt) 4 mg PO Q6H PRN PRN Reason: NAUSEA OR VOMITING Oxycodone/Acetaminophen (Percocet 5/325 Mg) 1 tab PO Q4H PRN PRN Reason: PAIN SCALE 3 TO 5 Patch Removal (Remove Old Patch) 1 each T-DERMAL DAILY [facility] Vit/Calcium/Iron/Folic Ac (St[place]natal Plus 3) 1 tab PO DAILY [facility] Last Admin: 04/13/18 09:01 Dose: 1 tab Senna/Docusate Sodium (Elysia-Colace) 1 tab PO BID [facility] Last Admin: 04/13/18 20:30 Dose: 1 tab Sennosides (Senokot) 17.2 mg PO Q12H PRN PRN Reason: Moderate Constipation Sodium Chloride (Ns Flush) 2 ml IV.FLUSH BID [facility] Last Admin: 04/14/18 07:24 Dose: Not Given Sodium Chloride (Ns Flush) 2 ml IV.FLUSH PRN PRN PRN Reason: FLUSH AFTER USING IV ACCESS Witch Tessa/Glycerin (Tucks Pads) 1 applicatio RECTAL QID PRN PRN Reason: HEMORRHOIDS Last Admin: 04/12/18 01:31 Dose: 1 applicatio Zolpidem Tartrate (Ambien) 5 mg PO HS PRN PRN Reason: SLEEP Last Admin: 04/13/18 22:36 Dose: 5 mg Assessment and Plan - Diagnosis (1) hypertension Code(s): O16.5 - Unspecified maternal hypertension, complicating the puerperium Status: Acute Plan: Patient was found to have hypertension at 167/94. Patient was managed with IV magnesium that is completed its course, hydralazine 25 mg twice daily, and nifedipine 30 mg daily pain. Patient had a urine protein of 20.5 and a protein to creatinine ratio of 0.59 as well as an AST of 41. Patient has remained normotensive overnight. - Discharge home -Continue nifedipine 30 mg daily -Seek medical attention if patient experiences dizziness, headaches and changes in vision Anxiety: - 1mg of Ativan QID PRN Rash: - Continue to monitor - Seek medical attention if condition worsens - Plan Patient is a 33-year-old G 1 p 0 delivered at 37 weeks and 6 days. Patient is day 3 after spontaneous vaginal delivery. Patient had elevated blood pressure overnight at 167/94. Urinalysis showed a urine protein of 20.5 as well as a protein creatinine ratio of 0.59. Her AST is 41 in the setting of hepatitis C. Patient currently on hydralazine 25 mg twice daily, IV magnesium sulfate, and nifedipine 30 mg daily. Patient desires Depo-Provera while inpatient. -Continue routine care -Motrin when necessary for pain -Encourage OOB -Pelvic rest for 6 weeks will need follow-up appointment at that time. -Anticipate discharge tomorrow
[2018-04-14] MEDS: Senna/Docusate Sodium 8.6/50 MG Tablet PO SCH (09:09)
[2018-04-14] MEDS: Prenatal Vit/Ca/Iron/Folic Acid Tablet PO SCH (09:10)
[2018-04-14] MEDS: Ferrous Sulfate 325 MG Tablet PO SCH (09:10)
[2018-04-14] MEDS ORDERED: medroxyPROGESTERone Acetate Inj 150 MG/ML Syringe IM ONE (10:00)
[2018-04-14] MEDS ORDERED: Diphtheria/Tetanus/Pertussis Vaccine Inj 0.5 ML Syringe IM ONE (11:35)
== END 2018-04-14 15:22 | disposition home or self-care (01) ==
LOC: HOBED 10:15 → H2E 13:00 → H1EA 04-12 01:01 → H2E 04-13 01:50 → H1EA 04-13 21:04
PROVIDERS: ADMIT Obstetrics & Gynecology; ATTEND Obstetrics & Gynecology